=== PATIENT | male | born 1995 | race Caucasian/White ===

== ENCOUNTER 2020-08-30 01:05 | Inpatient (IN) | payer SELFPAY ==
[2020-08-30] VITALS (9 sets, daily range): BP systolic 98–155; BP diastolic 55–95; PULSE 73–122; RESP 16–18; TEMP 36.8–37.1; O2SAT 93–99; BMI 25.6
--- NOTE | 2020-08-30 01:18 | PC.NURSE ---
patient states he does not want to be here and nothing is wrong with him and left triage room and walked out of the hospital. patient refused care stating he does not want to be in the hospital.
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
[2020-08-30] MEDS: LORazepam 2 mg/mL INJ 1 mL IM (01:52)
[2020-08-30] MEDS: haloperidol inj 5 mg/mL INJ 1 mL IM (01:52)
[2020-08-30 02:30] LABS: Basophils % 0.3 %; Eosinophils % 0.2 %; Hematocrit 41.8 % (42.0-52.0); Hemoglobin 13.7 g/dL (11.7-16.6); Lymphocytes # 2.3 10^3/uL (0.8-4.8); Lymphocytes % 18.5 %; Mean Corpuscular HGB Conc 32.8 g/dL (30.0-36.0); Mean Corpuscular Hemoglobin 29.1 pg (28.0-34.0); Mean Corpuscular Volume 88.9 fL (80-94); Mean Platelet Volume 9.9 fL (7.4-10.4); Monocytes % 8.3 %; Neutrophils # 8.86 10^3/uL (1.8-7.7); Neutrophils % 72.1 %; Nucleated Red Blood Cells % 0 %; Platelet Count 253 10^3/cmm (130-400); Red Cell Distribution Width 13.3 % (12.1-15.1); White Blood Count 12.3 10^3/uL (4.0-10.0)
[2020-08-30 02:47] LABS: Alanine Aminotransferase 14 U/L (0-41); Albumin Level 4.5 g/dL (3.5-5.2); Alkaline Phosphatase 53 IU/L (40-130); Anion Gap 23.4 (5-19); Aspartate Amino Transferase 23 U/L (0-40); Blood Urea Nitrogen 18 mg/dL (6-20); Calcium 8.7 mg/dL (8.5-10.5); Carbon Dioxide 20 mmol/L (22-29); Chloride 101 mmol/L (98-107); Globulin 2.6 g/dL (1.3-4.6); Glomerular Filtration Rate 89.6 mL/min (90-130); Glucose 95 mg/dL (65-115); Osmolality Calculated 294 mOsm/kg (285-295); Potassium 3.4 mmol/L (3.5-5.1); Salicylate 0.4 mg/dL (3-10); Sodium 141 mmol/L (136-145); Total Bilirubin 0.8 mg/dL (0.15-1.2); Total Protein 7.1 g/dL (6.6-8.7)
[2020-08-30 02:54] LABS: Acetaminophen < 5.0 ug/mL (10-30); Alcohol Level < 10 mg/dL (0-10)
[2020-08-30 03:08] LABS: Amphetamines Screen Urine Negative (Negative); Barbiturates Screen Urine Negative (Negative); Benzodiazepines Screen Urine Negative (Negative); Cocaine Screen Urine Negative (Negative); Opiate Screen Urine Negative (Negative); PCP Screen Urine Negative (Negative); THC Screen Urine Negative (Negative)
--- NOTE | 2020-08-30 03:17 | PC.NURSE ---
Pt resting quietly in bed at this time with eyes closed, respirations appear even and unlabored. Pt SpO2 stable at 97%. 1:1 sitter present at bedside.
[2020-08-30 03:24] LABS: Valproic Acid Level 55.3 ug/mL (50-100)
--- NOTE | 2020-08-30 05:34 | PC.NURSE ---
Phone call from patients mother, Silvia Christie. Silvia was unsure of patient's current meds. He uses [facility], . The pharmacy opens today at 0800.
--- NOTE | 2020-08-30 08:45 | PC.NURSE ---
called [facility] to clarify medications,
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
[2020-08-31 06:00] VITALS: BP 116/78; PULSE 72; RESP 18; TEMP 36.8; O2SAT 98
[2020-08-31] MEDS: divalproex DR 500 mg Tablet 1000 MG PO (11:31)
[2020-08-31 14:00] VITALS: BP 133/85; PULSE 118; RESP 18; TEMP 36.2; O2SAT 95
--- NOTE | 2020-08-31 16:45 | PM.NPN ---
Subjective NPU Subjective: Interval history: Ailyn presents today fairly overjoyed at the possibility of being discharged tomorrow. We discussed the situation with his medication namely the difficulty obtaining the medication outpatient in this area given his Medicaid from a different state. We also talked with his mother and 1 agreed to the plan of getting a prescription but not being able to start the medication till next week with a return home. He presents reporting that he is feeling much better than yesterday and that he is very excited about discharge. Mental Status Exam MSE Comments: This is a well-nourished, well-developed white male in hospital scrubs with grooming and eye contact. No abnormal movements. Cooperative with exam in no acute distress. Speech was normal rate and volume and childlike. Mood described as happy, affect euthymic. Thought process mostly organized. Thought content: Patient denied suicidal or homicidal ideation, there were no delusions reported or noted, he denied any auditory or visual hallucinations. Attention and concentration appeared intact and memory was limited but none were formally tested. He is alert and oriented x3. Insight and judgment are improving, impulse control is limited, intellectual ability is impaired. 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 1. Continue current medication. 2. Continue every 15 minute checks for safety. 3. Encourage individual, group and milieu therapies. 4. Obtain collateral information from one of his caregivers. Involuntary Hold Information 96 Hour Hold: 96 Hour Involuntary Admission: Yes 96 Hour Hold Ending Date: 09/05/20 96 Hour Hold Ending Time: 02:23 Attestations NPU Medical Necessity Statement*: Inpatient hospitalization is medically necessary and the clinically appropriate intervention at this time. We will monitor medications and make changes as indicated. Likely length of stay 1-3 days. Coding Level of Care Code Acute Enterprise Systems Engineer for Adria Myers
[2020-08-31] MEDS: benztropine 1 mg Tablet PO (21:31)
[2020-08-31 22:00] VITALS: BP 139/75; PULSE 91; RESP 19; TEMP 36.8; O2SAT 93
[2020-09-01 06:00] VITALS: BP 90/61; PULSE 66; RESP 18; TEMP 36.6; O2SAT 97
[2020-09-01] MEDS: benztropine 1 mg Tablet PO (08:03)
[2020-09-01] MEDS: divalproex DR 500 mg Tablet 1000 MG PO (08:03)
--- NOTE | 2020-09-01 11:05 | P.PN_ITS ---
NPU Therapy Progress Note Therapy Progress Note Date: 08/31/20 Time In: 19:30 Time Out: 19:40 Symptoms Reported: none reported Mood: reports he is happy, appears inappropriately giddy Progress Note: Mariano says hi to this LOGISTICS ENGINEERING MANAGER as she is walking down the [place]. LOGISTICS ENGINEERING MANAGER introduces herself and asks Mariano if he has anything he would like to talk about today. Mariano reports he is happy and laughs inappropriately. He was asked what brought him to the stress unit and he states he got mad and did not want to discuss further. LOGISTICS ENGINEERING MANAGER educated about where she worked and access to [employer] if needed. He does state that he received his medications since being hospitalized and feels much better. He thanked LOGISTICS ENGINEERING MANAGER for stopping by and confirms again is doing great! . Intervention: LOGISTICS ENGINEERING MANAGER educated about her role at [employer] and [employer] services. LOGISTICS ENGINEERING MANAGER praised Mariano for taking his medications and he was encouraged to continue this behavior. Reported Goals Before Discharge: none reported
--- NOTE | 2020-09-01 11:05 | PM.NPTHER ---
NPU Therapy Progress Note Therapy Progress Note Date: 08/31/20 Time In: 19:30 Time Out: 19:40 Symptoms Reported: none reported Mood: reports he is happy, appears inappropriately giddy Progress Note: Mariano says hi to this SURGICAL ELASTIC KNITTER as she is walking down the [place]. SURGICAL ELASTIC KNITTER introduces herself and asks Mariano if he has anything he would like to talk about today. Mariano reports he is happy and laughs inappropriately. He was asked what brought him to the stress unit and he states he got mad and did not want to discuss further. SURGICAL ELASTIC KNITTER educated about where she worked and access to [employer] if needed. He does state that he received his medications since being hospitalized and feels much better. He thanked SURGICAL ELASTIC KNITTER for stopping by and confirms again is doing great! . Intervention: SURGICAL ELASTIC KNITTER educated about her role at [employer] and [employer] services. SURGICAL ELASTIC KNITTER praised Mariano for taking his medications and he was encouraged to continue this behavior. Reported Goals Before Discharge: none reported
[2020-09-01 13:09] VITALS: BP 90/61; PULSE 66; RESP 18; TEMP 36.6; O2SAT 97
== END 2020-09-01 15:00 | disposition home or self-care (01) | DRG 885 ==
LOC: ER 01:54 → NP 03:33
PROVIDERS: Admitting Provider Psychiatry & Neurology Psychiatry; Emergency Provider Emergency Medicine; Visit Provider Psychiatry & Neurology Psychiatry
DX: F20.9 Schizophrenia, unspecified (principal); F63.9 Impulse disorder, unspecified; F79 Unspecified intellectual disabilities
CPT/HCPCS: 80053; 80164; 80306; 80307; 85025; 99285; J1630; J2060